=== PATIENT | female | born 1960 | race Hispanic/Latino ===

== ENCOUNTER 2017-01-06 07:02 | Day surgery (SDC) | payer MEDICAID, OTHER ==
[2017-01-06 07:58] VITALS: BMI 25.4
[2017-01-06] MEDS ORDERED: Propofol 10 mg/ml Inj (20 ML) ONE (08:56)
[2017-01-06] MEDS ORDERED: Lactated Ringer's 1,000 ML IV ONE (09:00)
[2017-01-06] MEDS ORDERED: Simethicone 40 mg/0.6 ml Liquid (30 ml) ONE (09:11)
[2017-01-06] MEDS ORDERED: Lactated Ringer's 500 ML IV SCH (09:15)
[2017-01-06 10:56] VITALS: TEMP 98.2
[2017-01-06 10:58] VITALS: O2SAT 100
[2017-01-06 11:00] VITALS: BP 128/74; PULSE 60; RESP 16
== END 2017-01-06 10:50 | disposition home or self-care (01) ==
LOC: C.ENDO 07:02
PROVIDERS: ATTEND Internal Medicine
DX: K51.50 Left sided colitis without complications (principal); K62.1 Rectal polyp; K64.8 Other hemorrhoids; K57.30 Diverticulosis of large intestine without perforation or abscess without bleeding
CPT/HCPCS: 45380; 88305; J2704; J7120